=== PATIENT | male | born 1965 | race Two or more races ===

== ENCOUNTER 2019-06-06 10:01 | Emergency (ER) | payer BC, MEDICAID ==
[~2019-06-06] VITALS: Ht 179.1 cm; Wt 97.0 kg
[2019-06-06] MEDS ORDERED: morphine 4 MG/ML inj SYRINge IV ONE ×2 (10:35→10:50)
[2019-06-06] MEDS ORDERED: normal saline 1000ml 1,000 ML IV ONE (10:35)
[2019-06-06] MEDS ORDERED: ondansetron/PF 4mg/2ml inj IV ONE (10:35)
[2019-06-06] MEDS ORDERED: proCHLORperazine 10 MG/2 ml inj IV ONE (10:35)
[2019-06-06] MEDS ORDERED: ketorolac trometh. 30mg/ml inj. IV ONE (10:35)
[2019-06-06 11:29] LABS: BASOPHILS % (AUTO) 0.3 % (0-1); EOSINOPHILS # (AUTO) 0.1 X10'3 (0-0.9); EOSINOPHILS % (AUTO) 1.2 % (0-6); HEMATOCRIT 46.9 % (42.0-52.0); HEMOGLOBIN 15.9 g/dl (14.0-17.9); LYMPHOCYTES # (AUTO) 3.4 X10'3 (1.1-4.8); LYMPHOCYTES % (AUTO) 36.5 % (21-51); MEAN CORPUSCULAR HEMOGLOBIN 31.5 PG (27.0-31.0); MEAN CORPUSCULAR HGB CONC 33.9 g/dL (33.0-36.5); MEAN CORPUSCULAR VOLUME 92.8 FL (78-98); MEAN PLATELET VOLUME 7.3 FL (7.4-10.4); MONOCYTES # (AUTO) 0.7 X10'3 (0-0.9); MONOCYTES % (AUTO) 7.5 % (2-12); NEUTROPHILS # (AUTO) 5.1 X10'3 (1.8-7.7); NEUTROPHILS % (AUTO) 54.5 % (42-75); PLATELET COUNT 315 X10'3 (140-440); RED BLOOD COUNT 5.06 X10'6 (4.70-6.10); RED CELL DISTRIBUTION WIDTH 13.6 % (11.5-14.5); WHITE BLOOD COUNT 9.4 X10'3 (4.5-11.0)
[2019-06-06 11:47] LABS: ALANINE AMINOTRANSFERASE 29 U/L (12-78); ALBUMIN 3.7 G/DL (3.4-5.0); ALBUMIN/GLOBULIN RATIO 0.9 (1.1-1.5); ALKALINE PHOSPHATASE 64 IU/L (46-116); AMYLASE 22 U/L (25-115); ANION GAP 11 (8-16); ASPARTATE AMINO TRANSFERASE 18 U/L (10-37); BILIRUBIN,TOTAL 0.5 MG/DL (0.1-1.0); BLOOD UREA NITROGEN 18 MG/DL (7-18); BUN/CREATININE RATIO 14.9 (5.4-32.0); CHLORIDE 106 MMOL/L (99-107); CREATININE 1.21 MG/DL (0.60-1.10); GLUCOSE 116 MG/DL (70-104); LIPASE 115 U/L (73-393); POTASSIUM 3.9 MMOL/L (3.5-5.1); SODIUM 139 MMOL/L (135-145); TOTAL CARBON DIOXIDE 22.2 MMOL/L (24-32); TOTAL PROTEIN 7.9 G/DL (6.4-8.2); eGFR 63 ML/MIN
[2019-06-06] MEDS ORDERED: FLO0.4C PO (11:50)
[2019-06-06] MEDS ORDERED: HYDR-3965 PO (11:50)
[2019-06-06] MEDS ORDERED: ONDA4TAB6 PO (11:50)
[2019-06-06 12:02] LABS: CALCIUM 8.9 MG/DL (8.5-10.1)
[2019-06-06 12:05] LABS: CLARITY,URINE CLOUDY (Clear); COLOR,URINE YELLOW (Yellow); GLUCOSE, URINE NEGATIVE (Neg); KETONES,URINE NEGATIVE (Neg); LEUKOCYTE ESTERASE ,URINE NEGATIVE (Neg); NITRITES, URINE NEGATIVE (Neg); OCCULT BLOOD,URINE LARGE (Neg); PH,URINE 5.5 (4.8-8.0); PROTEIN,URINE 100 mg/dl (Neg); UROBILINOGEN,URINE 0.2 E.U/dL (0.2-1.0)
[2019-06-06 12:06] LABS: UA COLLECTION TYPE CLN CATCH MIDSTREAM
[2019-06-06 12:14] LABS: TRIPLE PHOSPHATE CRYST 4+ /HPF (NEGATIVE)
[2019-06-06 12:15] LABS: BACTERIA,URINE 1+ /HPF (Neg); RBC,URINE TNTC /HPF (0-2)
[2019-06-06 12:16] LABS: SQUAMOUS EPITHELIAL CELL,UR FEW /LPF (FEW); WBC,URINE 0-4 /HPF (0-4)
[2019-06-06 12:32] VITALS: BP 157/74
== END 2019-06-06 12:34 | disposition home or self-care (01) ==
LOC: ER 10:01
DX: N50.812 Left testicular pain (principal); R11.2 Nausea with vomiting, unspecified; R10.32 Left lower quadrant pain; Z98.890 Other specified postprocedural states; Z79.899 Other long term (current) drug therapy
CPT/HCPCS: 36415; 80053; 81001; 82150; 83690; 85025; 96374; 96375; 99284; J0780; J1885; J2270; J2405; J7030